=== PATIENT | female | born 1940 | race Caucasian/White ===

== ENCOUNTER 2017-04-11 12:37 | Emergency (ER) | payer MEDICARE | END 2017-04-11 15:03 | disposition home or self-care (01) | LOC: EDH 12:37 | DX: S93.691A Other sprain of right foot, initial encounter (principal); E07.9 Disorder of thyroid, unspecified; I10 Essential (primary) hypertension; C50.919 Malignant neoplasm of unspecified site of unspecified female breast; Z88.8 Allergy status to other drugs, medicaments and biological substances; X58.XXXA Exposure to other specified factors, initial encounter; Y93.89 Activity, other specified; Y92.488 Other paved roadways as the place of occurrence of the external cause; Y99.8 Other external cause status | CPT/HCPCS: 73630 ==

== ENCOUNTER 2020-11-21 05:46 | Emergency (ER) | payer MEDICARE ==
[~2020-11-21] VITALS: Ht 170.2 cm; Wt 93.9 kg
[2020-11-21 09:38] LABS: EOSINOPHILS % (AUTO) 3.3 % (0.0-8.0); HEMATOCRIT 33.8 % (36-48); MEAN CORPUSCULAR HEMOGLOBIN 29.6 pg (27.0-33.0); MEAN CORPUSCULAR HGB CONC 32.5 g/dL (32.0-36.0); MEAN CORPUSCULAR VOLUME 90.9 fL (79-99); MONOCYTES % (AUTO) 11.2 % (3.0-13.0); NEUTROPHILS % (AUTO) 57.2 % (40.0-77.0); PLATELET COUNT (AUTO) 218 K/uL (130-400); RED BLOOD CELL COUNT(AUTO) 3.72 MIL/uL (4.00-5.50); RED CELL DISTRIBUTION WIDTH 13.3 % (11.0-15.5); WHITE BLOOD COUNT (AUTO) 6.1 K/uL (4.8-10.8)
[2020-11-21 09:45] LABS: CREATININE 0.8 mg/dL (0.5-1.5); POTASSIUM 3.4 mmol/L (3.5-5.1)
[2020-11-21 09:48] LABS: URIC ACID 6.1 mg/dL (2.6-7.2)
[2020-11-21 10:43] LABS: ERYTHROCYTE SEDIMENTATION RATE 20 MM/HR (0-30)
[2020-11-21] MEDS ORDERED: CEPH500B PO (11:02)
[2020-11-21] MEDS ORDERED: CELE200 PO (11:02)
[2020-11-21 12:45] VITALS: BP 126/78
== END 2020-11-21 12:47 | disposition home or self-care (01) ==
LOC: EDH 05:46
DX: L03.012 Cellulitis of left finger (principal); M10.9 Gout, unspecified; I48.91 Unspecified atrial fibrillation; E78.00 Pure hypercholesterolemia, unspecified; I10 Essential (primary) hypertension; Z98.890 Other specified postprocedural states; Z79.899 Other long term (current) drug therapy
CPT/HCPCS: 29130; 36415; 73130; 80048; 84550; 85025; 85651

== ENCOUNTER 2021-03-23 12:05 | Emergency (ER) | payer MEDICARE ==
[~2021-03-23] VITALS: Ht 170.2 cm; Wt 90.7 kg
[~2021-03-23 12:05] MED LIST: CELE200 PO; CEPH500B PO
[2021-03-23 12:48] LABS: BASOPHILS % (AUTO) 0.9 % (0.0-5.0); HEMATOCRIT 36.7 % (36-48); MEAN CORPUSCULAR HEMOGLOBIN 28.3 pg (27.0-33.0); MEAN CORPUSCULAR HGB CONC 31.6 g/dL (32.0-36.0); MEAN CORPUSCULAR VOLUME 89.5 fL (79-99); MONOCYTES % (AUTO) 11.6 % (3.0-13.0); NEUTROPHILS % (AUTO) 67.1 % (40.0-77.0); PLATELET COUNT (AUTO) 203 K/uL (130-400); RED CELL DISTRIBUTION WIDTH 15.3 % (11.0-15.5); WHITE BLOOD COUNT (AUTO) 5.6 K/uL (4.8-10.8)
[2021-03-23 13:00] LABS: CREATININE 0.9 mg/dL (0.5-1.5); POTASSIUM 3.1 mmol/L (3.5-5.1)
[2021-03-23 13:05] LABS: ALBUMIN 3.7 g/dL (3.5-5.0); BILIRUBIN,TOTAL 1.2 mg/dL (0.2-1.0); TOTAL PROTEIN, SERUM 6.9 g/dL (6.0-8.3)
[2021-03-23] MEDS ORDERED: MAG/ALUM/SIMETH 30 ML UDCUP PO ONE (15:00)
[2021-03-23] MEDS ORDERED: DICYCLOMINE HCL 10 MG/5 ML ML PO ONE (15:00)
[2021-03-23] MEDS ORDERED: LIDOCAINE HCL 2% VISCOUS 15 ML UDCUP PO ONE (15:00)
[2021-03-23 18:40] VITALS: BP 149/71
== END 2021-03-23 18:37 | disposition home or self-care (01) ==
LOC: EDH 12:05
DX: K80.50 Calculus of bile duct without cholangitis or cholecystitis without obstruction (principal); R05.3 Chronic cough; Z20.822 Contact with and (suspected) exposure to COVID-19; I48.91 Unspecified atrial fibrillation; Z79.1 Long term (current) use of non-steroidal anti-inflammatories (NSAID); Z85.3 Personal history of malignant neoplasm of breast
CPT/HCPCS: 36415; 71045; 76705; 80053; 82550; 83880; 84484 ×2; 85025; 87635; 87804 ×2; 93005; 99285; C9803

== ENCOUNTER 2021-08-06 10:47 | Day surgery (SDC) | payer MEDICARE ==
[2021-08-05 15:21] LABS: BASOPHILS % (AUTO) 1.2 % (0.0-5.0); EOSINOPHILS % (AUTO) 1.7 % (0.0-8.0); HEMATOCRIT 39.4 % (36-48); LYMPHOCYTES % (AUTO) 26.9 % (21.0-51.0); MEAN CORPUSCULAR HEMOGLOBIN 28.5 pg (27.0-33.0); MEAN CORPUSCULAR HGB CONC 31.7 g/dL (32.0-36.0); MONOCYTES % (AUTO) 14.9 % (3.0-13.0); NEUTROPHILS % (AUTO) 55.1 % (40.0-77.0); PLATELET COUNT (AUTO) 167 K/uL (130-400); RED BLOOD CELL COUNT(AUTO) 4.38 MIL/uL (4.00-5.50); RED CELL DISTRIBUTION WIDTH 15.9 % (11.0-15.5); WHITE BLOOD COUNT (AUTO) 5.2 K/uL (4.8-10.8)
[2021-08-05 15:31] LABS: INR 1.08 (0.85-1.15); PROTHROMBIN TIME 11.7 SEC (9.6-11.6)
[2021-08-05 15:36] LABS: ALBUMIN 3.7 g/dL (3.5-5.0); BILIRUBIN,DIRECT 0.2 mg/dL (0.0-0.3); BILIRUBIN,TOTAL 0.5 mg/dL (0.2-1.0); CREATININE 0.9 mg/dL (0.5-1.5); POTASSIUM 3.9 mmol/L (3.5-5.1)
[2021-08-06] VITALS (17 sets, daily range): BP systolic 112–151; BP diastolic 61–83
[~2021-08-06] VITALS: Ht 167.6 cm; Wt 88.8 kg
[~2021-08-06 10:47] MED LIST changes: +AMLO-257 PO; +APIX5TAB PO; +ATOR40TA71 PO; +CARV25TA PO; -CELE200 PO; -CEPH500B PO; +Co Q10 PO; +LEVO125T4 PO; +LOSA1TAB54 PO
[2021-08-06] MEDS ORDERED: LACTATED RINGERS 1000ML 1,000 ML IV ONE (11:51)
[2021-08-06] MEDS ORDERED: FENTANYL CITRATE PF 50 MCG/1 ML 5ML AMP IV ONE (12:12)
[2021-08-06] MEDS ORDERED: MIDAZOLAM HCL 1 MG/ML 2ML VIAL ONE (12:12)
[2021-08-06] MEDS ORDERED: LIDOCAINE PF 100MG/5ML (2%) SYRINGE 5ML ONE (12:19)
[2021-08-06] MEDS ORDERED: ONDANSETRON 4MG INJ ONE (12:20)
[2021-08-06] MEDS ORDERED: ROCURONIUM 10MG/1ML SYR 10 MG/ML ML ONE (12:20)
[2021-08-06] MEDS ORDERED: PROPOFOL 10 MG/ML 20ML VIAL IV ONE (12:20)
[2021-08-06] MEDS: CEFAZOLIN SODIUM 1 GM VIAL ONE ×2 (12:30→13:58)
[2021-08-06] MEDS ORDERED: ACET-2079 PO (12:34)
[2021-08-06] MEDS ORDERED: EPHEDRINE SULFATE 50 MG/ML AMPULE ONE (12:58)
[2021-08-06] MEDS ORDERED: KETOROLAC 30MG VIAL (30MG/ML) ONE (13:14)
[2021-08-06] MEDS ORDERED: GLYCOPYRROLATE 1 MG/5 ML SYRINGE ONE (13:15)
[2021-08-06] MEDS ORDERED: BUPIVACAINE/PF 0.5% 30ML VIAL ONE (13:15)
[2021-08-06] MEDS ORDERED: NEOSTIGMINE 5MG/5ML SYR IV ONE (13:16)
[2021-08-06] MEDS ORDERED: KETOROLAC 15MG/ML VIAL (15MG/ML) ONE (13:21)
[2021-08-06] MEDS ORDERED: MORPHINE 2 MG SYG ONE ×2 (13:53→14:07)
== END 2021-08-06 15:45 | disposition home or self-care (01) ==
LOC: DAH 10:47
PROVIDERS: ATTEND Specialist
DX: K80.12 Calculus of gallbladder with acute and chronic cholecystitis without obstruction (principal); I10 Essential (primary) hypertension; M06.9 Rheumatoid arthritis, unspecified; E66.01 Morbid (severe) obesity due to excess calories; E78.5 Hyperlipidemia, unspecified; E03.9 Hypothyroidism, unspecified; Z98.890 Other specified postprocedural states; Z98.49 Cataract extraction status, unspecified eye; Z79.82 Long term (current) use of aspirin; Z79.01 Long term (current) use of anticoagulants; Z79.890 Hormone replacement therapy
CPT/HCPCS: 36415; 47562; 71045; 80048; 80076; 85025; 85610; 87635; A4215 ×2; A4221; A4222; A4223; A4600; A4649 ×4; A4663; A4930; A6206; C1769 ×4; C9803; J0690; J1885 ×2; J2001; J2250; J2405; J2704; J2710; J3010; J3490 ×3; J7030; J7120 ×2

== ENCOUNTER → 2022-07-02 | Outpatient (CLI) | payer MEDICARE ==
[~2022-07-02] MED LIST changes: +ACET-2079 PO
[2022-07-02 16:17] LABS: BASOPHILS % (AUTO) 1.4 % (0.0-5.0); EOSINOPHILS % (AUTO) 4.9 % (0.0-8.0); HEMATOCRIT 38.4 % (36-48); LYMPHOCYTES % (AUTO) 21.9 % (21.0-51.0); MEAN CORPUSCULAR HEMOGLOBIN 29.9 pg (27.0-33.0); MEAN CORPUSCULAR VOLUME 93.2 fL (79-99); NEUTROPHILS % (AUTO) 58.5 % (40.0-77.0); PLATELET COUNT (AUTO) 212 K/uL (130-400); RED BLOOD CELL COUNT(AUTO) 4.12 MIL/uL (4.00-5.50); RED CELL DISTRIBUTION WIDTH 13.3 % (11.0-15.5); WHITE BLOOD COUNT (AUTO) 6.3 K/uL (4.8-10.8)
[2022-07-02 16:40] LABS: ALBUMIN 3.7 g/dL (3.5-5.0); CREATININE 0.8 mg/dL (0.5-1.5); T4 (THYROXINE) 9.6 ug/dL (4.7-13.3); THYROID STIMULATING HORMONE 0.89 uIU/mL (0.36-3.74); TOTAL PROTEIN, SERUM 6.9 g/dL (6.0-8.3)
== END | disposition home or self-care (01) ==
LOC: LAB 14:15
PROVIDERS: ATTEND Internal Medicine Cardiovascular Disease
DX: I10 Essential (primary) hypertension (principal)
CPT/HCPCS: 36415; 80053; 84436; 84443; 85025

== ENCOUNTER → 2022-08-11 | Outpatient (CLI) | payer MEDICARE | END | disposition home or self-care (01) | LOC: SHCH 14:55 | PROVIDERS: ATTEND Internal Medicine Cardiovascular Disease | DX: I08.1 Rheumatic disorders of both mitral and tricuspid valves (principal); I11.9 Hypertensive heart disease without heart failure; I27.20 Pulmonary hypertension, unspecified | CPT/HCPCS: 93306 ==

== ENCOUNTER 2022-11-20 23:29 | Emergency (ER) | payer MEDICARE ==
[~2022-11-20] VITALS: Ht 170.2 cm; Wt 81.6 kg
[2022-11-21 01:11] LABS: BASOPHILS # (AUTO) 0.07 K/uL (0.00-0.20); BASOPHILS % (AUTO) 1.3 % (0.0-5.0); EOSINOPHILS # (AUTO) 0.21 K/uL (0.00-0.70); EOSINOPHILS % (AUTO) 3.8 % (0.0-8.0); HEMATOCRIT 40.3 % (36-48); IMMATURE GRANULOCYTE ABSOLUTE 0.01 K/uL (0-1); LYMPHOCYTES # (AUTO) 1.5 K/uL (1.0-4.8); LYMPHOCYTES % (AUTO) 27.5 % (21.0-51.0); MEAN CORPUSCULAR HEMOGLOBIN 30.6 pg (27.0-33.0); MEAN CORPUSCULAR HGB CONC 32.8 g/dL (32.0-36.0); MEAN CORPUSCULAR VOLUME 93.5 fL (79-99); MONOCYTES # (AUTO) 0.6 K/uL (0.1-1.0); MONOCYTES % (AUTO) 11.5 % (3.0-13.0); NEUTROPHILS # (AUTO) 3.1 K/uL (1.8-7.7); NEUTROPHILS % (AUTO) 55.7 % (40.0-77.0); PLATELET COUNT (AUTO) 152 K/uL (130-400); RED BLOOD CELL COUNT(AUTO) 4.31 MIL/uL (4.00-5.50); WHITE BLOOD COUNT (AUTO) 5.5 K/uL (4.8-10.8)
[2022-11-21 01:18] LABS: CREATININE 0.8 mg/dL (0.5-1.5); POTASSIUM 4.4 mmol/L (3.5-5.1)
[2022-11-21 01:23] LABS: TOTAL PROTEIN, SERUM 7.4 g/dL (6.0-8.3)
[2022-11-21 01:30] LABS: B-TYPE NATRIURETIC PEPTIDE 145 pg/mL (0-100)
[2022-11-21] MEDS ORDERED: MORPHINE 2 MG SYG IVP ONE ×2 (01:30→03:00)
[2022-11-21 03:23] VITALS: BP 145/62; PULSE 78; RESP 18; O2SAT 97
[2022-11-21] MEDS ORDERED: IBUP-1493 PO (04:08)
== END 2022-11-21 04:22 | disposition home or self-care (01) ==
LOC: EDH 23:29
DX: M25.532 Pain in left wrist (principal); I48.91 Unspecified atrial fibrillation; I10 Essential (primary) hypertension; Z79.01 Long term (current) use of anticoagulants; Z79.890 Hormone replacement therapy; Z85.3 Personal history of malignant neoplasm of breast
CPT/HCPCS: 99285; 80053; 83880; 85025; 36415; 93005; 96374; 71045; 73090; 73130; 73110; 96376; J2270 ×2

== ENCOUNTER → 2023-06-18 | Outpatient (CLI) | payer MEDICARE ==
[~2023-06-18] MED LIST changes: +IBUP-1493 PO
== END | disposition home or self-care (01) ==
LOC: RAH 15:28
PROVIDERS: ATTEND Physician Assistant
DX: R60.9 Edema, unspecified (principal); Z79.899 Other long term (current) drug therapy
CPT/HCPCS: 93971